=== PATIENT | female | born 1945 | race Caucasian/White ===

== ENCOUNTER 2020-06-06 06:08 | Observation (INO) ==
[~2020-06-06 06:08] MED LIST: MORPHINE SULFATE 15 MG TABLET.SA PO PRN; TRANEXAMIC ACID 1,000 MG in NORMAL SALINE 100 ML IV PRN
[2020-06-06] MEDS: RINGER'S SOLUTION,LACTATED 1,000 ML IV PRN ×2 (06:35→09:35)
[2020-06-06] MEDS ORDERED: BUPIVACAINE HCL/EPINEPHRINE 50 ML VIAL IJ ONE (06:48)
[2020-06-06] MEDS ORDERED: MIDAZOLAM HCL/PF 5 MG/ML VIAL ONE (06:48)
[2020-06-06] MEDS ORDERED: SEVOFLURANE 250 ML BTL IH ONE (06:49)
[2020-06-06] MEDS ORDERED: PROPOFOL VIAL IV ONE (06:49)
[2020-06-06] MEDS ORDERED: ONDANSETRON HCL/PF 2 MG/ML VIAL ONE (06:49)
[2020-06-06] MEDS ORDERED: ISOPROPYL ALCOHOL 480 APPL BTL MC ONE (06:54)
--- NOTE | 2020-06-06 07:24 | ANES ---
Anesthesia Pre Procedure Eval Vitals/Labs: Last Vital Signs Temp 37.0 C 06/06/20 06:10 Pulse 116 H 06/06/20 06:10 Resp 16 06/06/20 06:10 BP 183/88 H 06/06/20 06:10 Pulse Ox 96 06/06/20 06:10 HOME MEDICATIONS albuterol sulfate 90 mcg/actuation aerosol inhaler 1 puff IH ONCE PRN g 05/20/20 [Last Taken Unknown] benazepril 40 mg tablet 40 mg PO DAILY tab 05/20/20 [Last Taken 06/06/20 05:00] brimonidine 0.15 % eye drops 1 drp OP ONCE ml 05/20/20 [Last Taken Unknown] clonidine HCl 0.2 mg tablet 0.1 mg PO DAILY tab 05/20/20 [Last Taken Unknown] diltiazem HCl 240 mg capsule,extended release 24 hr 240 mg PO DAILY cap 05/20/20 [Last Taken Unknown] hydralazine 10 mg tablet 10 mg PO DAILY tab 05/20/20 [Last Taken 06/06/20 05:00] hydrocodone 5 mg-acetaminophen 325 mg tablet 1 tab PO Q6H PRN #40 tab 05/20/20 [Last Taken Unknown] warfarin 3 mg tablet 3 mg PO DAILY tab 05/20/20 [Last Taken 06/01/20 17:00] Allergies/Adverse Reactions: Allergies Allergy/AdvReac Type Severity Reaction Status Date / Time No Known Allergies Allergy Verified 05/30/20 14:35 - Planned Procedure Planned Procedure: LT Arthroplasty Total Shoulder Reverse Medication List Reviewed:: Yes Allergies Verified: Yes Medical History (Last Reviewed 06/06/20 @ 07:17 by Rosas Acharya CRNA) Closed fracture of left proximal humerus (Acute) Left patella fracture (Acute) Asthma Onset Date: Unknown Atrial fibrillation Onset Date: Unknown Hypertension Onset Date: Unknown Surgical History (Last Reviewed 06/06/20 @ 07:20 by Rosas Acharya CRNA) H/O section Onset Date: Unknown 2 Hx of cholecystectomy Onset Date: Unknown Family History (Last Reviewed 06/06/20 @ 07:20 by Rosas Acharya CRNA) Mother Heart disease Myocardial infarction Father Cancer - Family Anesthesia History Family History:: no untoward family reactions to anesthesia, no familial bleeding tendencies, no family history of clotting disorders, no family history of premature - Airway/Neck/Teeth Within Normal Limits:: Yes Teeth Condition: intact Neck Exam: full range of motion Mallampatti Score: 3 Thyromental (T-M) distance: > 6 cm Mandibulo Hyoid distance: > 3 cm - Respiratory Respiratory Physical: lungs clear - coarse but no ronchi Smoking Status: Never smoker Sleep Apnea currently treated: No Sleep Apnea by current assessment: No - Cardiovascular Cardiac History: arrhythmia - Afib, rapid response, hypertension Tolerate Activity: Fair Heart Sounds: S1 & S2, Irregular - Gastrointestinal NPO since: 2399 - Anesthesia Assessment and Plan ASA Class: PS, III Anesthesia Type Plan: General LMA, Block - Interscalene block for post op pain relief
[2020-06-06] MEDS ORDERED: ceFAZolin SODIUM 1 GM VIAL ONE (07:40)
[2020-06-06] MEDS ORDERED: ceFAZolin SODIUM 2 GM in DEXTROSE 5 % IN WATER 50 ML IV ONE ×2 (07:55)
[2020-06-06 08:02] LABS: INR 1.18 INR (0.92-1.08); Prothrombin Time (Patient) 11.6 Seconds (9.1-10.7)
[2020-06-06] MEDS ORDERED: ceFAZolin SODIUM 1 GM VIAL IV PRN (09:06)
[2020-06-06] MEDS ORDERED: MAG HYDROX/ALUMINUM HYD/SIMETH 30 ML UDC PO PRN (10:06)
[2020-06-06] MEDS ORDERED: ZOLPIDEM TARTRATE 5 MG TABLET PO PRN (10:06)
[2020-06-06] MEDS ORDERED: MORPHINE SULFATE 2 MG/ML DISP.SYRIN IV PRN (10:06)
[2020-06-06] MEDS ORDERED: MAGNESIUM HYDROXIDE 30 ML UDC PO PRN (10:06)
[2020-06-06] MEDS ORDERED: ACETAMINOPHEN 500 MG TABLET PO PRN (10:06)
[2020-06-06] MEDS ORDERED: ONDANSETRON HCL/PF 2 MG/ML VIAL IV PRN (10:06)
[2020-06-06] MEDS ORDERED: diphenhydrAMINE HCL 50 MG/ML VIAL IV PRN (10:06)
--- NOTE | 2020-06-06 10:06 | OR ---
Operative Report - Dictated Report Narrative: DATE OF PROCEDURE: 06/06/2020 PHYSICIAN: Ortega Chiu MD TEACHER PHYSICALLY IMPAIRED: Earl Fodr PA-C (provided and essential set of skilled, educated hands that assisted with transfer, positioning, prepping, draping, manipulation, retraction, placement of implants, irrigation, closure wounds, and application of dressings all which cannot be performed by the available surgical crew) PREOPERATIVE DIAGNOSIS: Left closed comminuted displaced proximal humerus fracture. POSTOPERATIVE DIAGNOSIS: Left closed comminuted displaced proximal humerus fracture. OPERATIONS AND PROCEDURES: Left reverse total shoulder arthroplasty. ANESTHESIA: General plus regional. COMPLICATIONS: None. DRAINS: None. SPECIMENS: Bone. ESTIMATED BLOOD LOSS: 75 mL. RETAINED IMPLANTS: 1. DePuy Delta Xtend cementless metaglene. 2. Delta Xtend glenosphere, 38 mm eccentric. 3. Global unite Porocoat size 10 standard stem 4. Size 1 left modular eccentric epiphysis SHARPE-coated cementless. 5. Delta Xtend standard polyethylene size 38 plus 3 mm. 6. Metaglene locking screws, 36 mm and 36 mm in length. 7. Nonlocking metaglene screws, 18 mm x 1 . INDICATIONS FOR PROCEDURE: Mrs. Murrieta is a 75-year-old female who fell resulting in a comminuted displaced left proximal humerus fracture concerning for significant disruption of blood flow to the articular surface. She was seen in clinic and options for surgical treatment were discussed versus nonsurgical treatment. She wished to proceed with surgical treatment. The risks, benefits, and alternatives were discussed in clinic, including the risk of , blood clots, bleeding, infection, nerve/tendon/blood vessel injury, malposition of components, failure of components, wear or limited range of motion, stiffness, and need for additional procedures, and she wished to proceed. Consent was obtained here in the clinic. DESCRIPTION OF PROCEDURE: After marking the correct extremity in the preoperative holding area, the patient was taken to the operating room. A timeout was performed. IV antibiotics consisting of Ancef were administered prior to procedure. The regional followed by general anesthetic was induced by the nurse landfill attendant at my request. She was then transitioned to beach chair position with all bony prominences well padded. The head in neutral, legs with SCDs and supported,and the nonoperative arm supported. The surgical arm was prescrubbed with alcohol then prepped and draped in the standard sterile fashion and the skin was covered with ioban. A deltopectoral incision was made and blunt dissection was carried down through the skin. The cephalic vein was identified, protected, and retracted. We then went through the deltopectoral interval, exposing the proximal humerus. There is noted comminution with significant impaction and no signs of significant healing of the impacted articular surface and comminuted greater and lesser tuberosities. A tag suture was placed in subscapularis tendon as well as the anterior capsule, and this was elevated off the anterior humerus passing along the bicipital groove and into the rotator cuff interval, exposing the proximal humerus. This was then freed off the proximal humerus. A biceps tenotomy was performed and the shoulder was dislocated. After resecting the articular surface this left a remaining shell of greater tuberosity and this performed our initial humeral preparation. We then turned our attention to the glenoid. The soft tissues were then elevated off the humeral neck as well as circumferentially around the glenoid. The glenoid was exposed. The remaining biceps tendon and labrum were resected. Using tractors, the glenoid was exposed and a guidewire was placed just posterior and inferior to the center of the glenoid. This was made so that it directed slightly superiorly but otherwise perpendicular to the glenoid on the axillary plane. Protecting the surrounding soft tissues, a reamer was utilized in order to remove the remaining cartilage. A sr. merchandise planner was utilized in order to resect the superior cartilage, and this resulted in a good overall appearance of the glenoid. The center drill lug hole was drilled and had good circumferential bone. The metaglene was then impacted into place and oriented for placement of screws along the mid plane in the superior and inferior quadrants of the glenoid as well as anterior to posterior screws. These were drilled and had appropriate overall length of screws on the superior and inferior metaglene screws. Good purchase was obtained with a 36 mm screw superiorly and 36 mm screw inferiorly. The anterior and posterior screws were drilled and 18 mm anterior nonlocking screw was placed. We then locked the superior and inferior screws into place. This gave good overall compression down to the glenoid with flat overall appearance and an appropriate alignment. The glenosphere was then placed in an eccentric position with the offset inferior. We returned our attention to the proximal humerus. The trial stem was assembled on the back table and impacted into place. We then placed the trials of polyethylene inserts and found that the 3mm gave good overall longitudinal traction with no gapping. The shoulder was able to reach 150 degrees of forward flexion and 140 degrees of abduction, external rotation was to 90 degrees and with fulcrum and armpit were unable to hinge the joint out of place, and there was no essentially no gapping of the polyethylene off the humeral head nor any signs of impingement on the glenoid neck. We felt that these were the appropriately placed and sized implants. We then dislocated the shoulder, removed the trial implants, thoroughly irrigated the humerus, impacted the final implants into place in the prior determined retroversion. Prior to placing the stem the greater tuberosity had sutures in place in order to tie this to the stem as well as back to the proximal humerus using #1 Ethibond. The final polyethylene was impacted into place. The shoulder was reduced, again noted to be stable, was then thoroughly irrigated. The deltopectoral interval was closed with #0 Vicryl. The deep tissues were then closed with #0 Vicryl, subcutaneous with 3-0 Monocryl, and the skin with dania. Xeroform, 4 x 4, ABD, soft roll, and full arm Tom was applied. The patient was placed in a shoulder sling immobilizer, awoken, and transferred to postanesthesia care in stable condition. All sponge, needle, and instrument counts were correct prior to closing the wounds. We will obtain postoperative films and be admitted to the floor for postoperative pain control, IV antibiotics, and starting of physical therapy. I anticipate a one to two night hospital stay.
--- NOTE | 2020-06-06 10:15 | ANES ---
Anesthesia Procedure Note Procedure Note: ANESTHESIA PROCEDURE NOTE Date of Procedure: 06/06/2020 Time of procedure: 7:55 AM. Performed by: BHAVIN Rg CRNA, MSN Barrel Repairer: Toño Sadler RN. Preprocedure diagnosis: Post total shoulder arthroplasty pain. Post procedure diagnosis: Same. Procedure: Left interscalene nerve block. Indications: Post left total shoulder arthroplasty pain relief. Findings: See below. Details of the procedure: The patient was brought to OR #4 and placed in semi- Fowlers position. The patient was prepped with chlorhexidine and using ultrasound guidance the left interscalene segment of the brachial plexus was identified and lidocaine 1% was infiltrated to the skin of the intended injection site. Under ultrasound guidance the interscalene nerve bundles were approached with visualization of a 2inch stimulator needle visualized unde ultrasound until a shoulder/arm response was identified on nerve stimulator. Once the stimulator response was effective at less than 0.5 mV and greater than 0.3 mV the bracheal plexus nerves at this level were surrounded with 30 mL bupivacaine 0.25% with 1-200,000 epinephrine. Please see radiology/ultrasound report for details and retained images of the procedure. EBL: 0 Fluids: N/A. Specimen: N/A. Post procedure condition: The patient tolerated the procedure well. No complications were noted. Thank you for this consultation. Rosas Acharya CRNA, ARNP, MSN
--- NOTE | 2020-06-06 10:16 | ANES ---
Post Anesthesia Discharge - Transfer of Care Transfer of Care handoff given to nurse: Yes - Discharge from PACU Discharge from PACU when meets criteria: Yes - Awake and comfortable
[2020-06-06] MEDS: DEXTROSE 5%-LACTATED RINGERS 1,000 ML IV PRN ×2 (11:07→20:07)
--- NOTE | 2020-06-06 11:46 | ANES ---
Post Anesthesia Assessment - Vital Signs Vitals: Last Vital Signs Temp 36.6 C 06/06/20 11:16 Pulse 94 06/06/20 11:30 Resp 12 06/06/20 11:30 BP 144/59 06/06/20 11:30 Pulse Ox 99 06/06/20 11:30 Airway Patency: Normal - Mental Status Level Of Consciousness: Awake, Alert, Appropriate - Pain Level Pain Score: 0 - N/V Assessment Nausea/Vomiting Presence: None Dehydration:: No
[2020-06-06] MEDS ORDERED: ALBUTEROL SULFATE 2.5 MG/0.5 ML VIAL.NEB IH PRN (12:19)
[2020-06-06] MEDS: oxyCODONE HCL/ACETAMINOPHEN 1 TAB TABLET PO PRN ×3 (13:26→23:08)
[2020-06-06] MEDS: ceFAZolin SODIUM 1 GM in DEXTROSE 5 % IN WATER 100 ML IV SCH ×4 (13:28→18:29)
[2020-06-06] MEDS: BRIMONIDINE TARTRATE 50 DROP BTL OP SCH (13:29)
[2020-06-06] MEDS ORDERED: WARFARIN SODIUM 2 MG TABLET PO SCH (17:00)
[2020-06-06] MEDS ORDERED: SENNOSIDES/DOCUSATE SODIUM 1 TAB TABLET PO SCH (21:00)
[2020-06-07] MEDS: ceFAZolin SODIUM 1 GM in DEXTROSE 5 % IN WATER 100 ML IV SCH ×2 (01:11)
[2020-06-07] MEDS: oxyCODONE HCL/ACETAMINOPHEN 1 TAB TABLET PO PRN ×2 (05:40→16:22)
[2020-06-07 06:24] LABS: INR 1.22 INR (0.92-1.08)
[2020-06-07] MEDS: hydrALAZINE HCL 10 MG TABLET PO SCH ×2 (07:10→08:35)
[2020-06-07] MEDS: DILTIAZEM HCL 240 MG CAP.SR.24H PO SCH ×2 (07:10→08:35)
[2020-06-07] MEDS: ENALAPRIL MALEATE 20 MG TABLET PO SCH ×2 (07:11→08:35)
[2020-06-07] MEDS: BRIMONIDINE TARTRATE 50 DROP BTL OP SCH ×2 (07:12→08:35)
[2020-06-07] MEDS: CLONIDINE HCL 0.1 MG TABLET PO SCH ×2 (08:35→10:21)
--- NOTE | 2020-06-07 10:21 | DS ---
(1) Asthma Problem: Chronic (2) A-fib Problem: Chronic (3) Hypertension Problem: Chronic (4) Status post reverse arthroplasty of left shoulder Problem: Acute Date of Discharge:: 06/07/20 Hospital Course: Mrs. Murrieta was admitted to the floor after undergoing left total shoulder arthroplasty. Tolerated this well. Was admitted to the floor postoperatively for 24 hours of IV antibiotics, pain control, medical comanagement, and occupational and physical therapy. OT and PT were consulted to assist with activities of daily living and ambulation. Was made non-weightbearing with restricted external rotation. She was placed in a shoulder immobilizer.. Pain was initially controlled with IV regimen. This was transitioned to oral once tolerating a by mouth intake. Was resumed on home diet and medications. A Joaquin catheter was inserted in the operating room which was discontinued by postoperative day 1. Her home Coumadin and SCDs were utilized for DVT proph ylaxis. Vital signs remained stable to the hospital course. Physical examination throughout the hospital course showed an extremity that had sensation that was intact to light touch, palpable pulses, a benign wound, motor intact to the wrists, fingers, and elbow. Once an oral pain regimen was tolerated and physical therapy goals were met, it was felt that they were stable for discharge to home. Instructions: Continue with non-weightbearing and restricted external rotation. Use the immobilizer as instructed. Do not bathe or soak the wound. Keep the wound clean and dry and cover with dry gauze and tape. Change every 2-3 days as needed if there is any drainage. Cover wound while showering. Continue with physical therapy. Resume home diet. Report any fever over 101.5 Fahrenheit, uncontrolled pain, increased drainage, foul odor of drainage, new or increased calf pain or shortness of breath, or any other significant complaints. 325mg twice daily aspirin will be continued until instructed otherwise. No driving until instructed otherwise. Follow up in approximately 2-3 weeks. Procedures Performed: see notes below List Procedures: Left reverse shoulder arthroplasty Results and Findings: Lab Pending Results 06/06/20 07:21: PT 11.6 H, INR (Anticoag Therapy) 1.18 H 06/07/20 06:00: PT 12.0 H, INR (Anticoag Therapy) 1.22 H Disposition: Home self-care Condition: Good Discharge Activity: Weight bearing Discharge Diet: General/regular food Additional Patient Instructions (free text): Follow up [facility] Orthopedic office appointment on Saturday at 9:45am. Prescriptions (Any new or edited meds): oxyCODONE HCL/ACETAMINOPHEN [Percocet 5 MG/325 MG] 1 - 2 tab PO Q4H PRN #50 tab PRN Reason: Moderate Pain (Pain Scale 4-6) Transmission Status: Received by [place], [place] Sennosides/Docusate Sodium [Senokot-S] 2 tab PO HS #60 tab Transmission Status: Pending to [place], [place] Complete Home Medications List: Complete Home Medication List: albuterol sulfate 90 mcg/actuation aerosol inhaler 1 puff IH ONCE PRN g 05/20/20 benazepril 40 mg tablet 40 mg PO DAILY tab 05/20/20 brimonidine 0.15 % eye drops 1 drp OP ONCE ml 05/20/20 clonidine HCl 0.2 mg tablet 0.1 mg PO HS tab 05/20/20 diltiazem HCl 240 mg capsule,extended release 24 hr 240 mg PO BID cap 05/20/20 hydralazine 10 mg tablet 10 mg PO TID tab 05/20/20 warfarin 3 mg tablet 3 mg PO SUTUTH tab 05/20/20 Warfarin Sodium 2 mg PO DAILY 06/06/20 Sennosides/Docusate Sodium [Senokot-S] 2 tab PO HS #60 tab 06/07/20 Warfarin Sodium [Coumadin] 2 mg PO MoWeFr@[id number] tab 06/07/20 oxyCODONE HCL/ACETAMINOPHEN [Percocet 5 MG/325 MG] 1 - 2 tab PO Q4H PRN #50 tab 06/07/20 Amb Orders for Discharge: OT Evaluation and Treatment Location: None Selected
[2020-06-07] MEDS ORDERED: DILTIAZEM HCL 240 MG CAP.SR.24H PO SCH (13:30)
[2020-06-07] MEDS ORDERED: hydrALAZINE HCL 10 MG TABLET PO SCH (13:45)
[2020-06-07 16:48] VITALS: BP 144/86
[2020-06-07] MEDS ORDERED: WARFARIN SODIUM 3 MG TABLET PO SCH (17:00)
== END 2020-06-07 16:40 | disposition home or self-care (01) ==
LOC: AMB 06:08 → MS 06:08 → EDSTATUS 08:00
PROVIDERS: ADMIT Orthopaedic Surgery; ATTEND Orthopaedic Surgery
DX: I10 Essential (primary) hypertension; Z79.01 Long term (current) use of anticoagulants; J45.909 Unspecified asthma, uncomplicated; W01.0XXA Fall on same level from slipping, tripping and stumbling without subsequent striking against object, initial encounter; S42.202A Unspecified fracture of upper end of left humerus, initial encounter for closed fracture; Y92.512 Supermarket, store or market as the place of occurrence of the external cause; I48.20 Chronic atrial fibrillation, unspecified